=== PATIENT | male | born 1965 | race African-American/Black ===

== ENCOUNTER 2022-01-08 20:09 | Emergency (ER) | payer SELFPAY ==
[~2022-01-08] VITALS: Ht 177.8 cm; Wt 91.0 kg
[~2022-01-08 20:09] MED LIST: PARO30TA76
[2022-01-08] MEDS: METHOCARBAMOL 750MG TABLET PO SCH ×3 (22:15→23:44)
[2022-01-08] MEDS ORDERED: KETOROLAC 60MG/2ML VIAL IM ONE (22:15)
[2022-01-08] MEDS ORDERED: ACETAMINOPHEN 325MG TABLET PO ONE (22:15)
[2022-01-08] MEDS ORDERED: LIDO1ADH23 TP (23:24)
[2022-01-08] MEDS ORDERED: IBUP-2028 MT (23:24)
[2022-01-08] MEDS ORDERED: METH-653 MT (23:24)
[2022-01-08] MEDS ORDERED: TOPUD PO (23:24)
[2022-01-08 23:45] VITALS: BP 134/78
== END 2022-01-08 23:45 | disposition home or self-care (01) ==
LOC: ER 20:09
DX: M25.521 Pain in right elbow (principal); M54.2 Cervicalgia; V49.49XA Driver injured in collision with other motor vehicles in traffic accident, initial encounter; Y93.89 Activity, other specified; Y92.89 Other specified places as the place of occurrence of the external cause; Y99.8 Other external cause status; F41.9 Anxiety disorder, unspecified; I10 Essential (primary) hypertension
CPT/HCPCS: 73080; 96372; 99283; J1885